=== PATIENT | female | born 1950 | race Hispanic/Latino ===

== ENCOUNTER 2018-04-13 08:43 | Day surgery (SDC) | payer MEDICARE ==
[~2018-04-13] VITALS: Ht 149.9 cm; Wt 61.1 kg
[~2018-04-13 08:43] MED LIST: ALLO100T PO; AMLO5TAB7 PO; CLOP75TA32 PO; LEVO75TA10 PO; SERT50TA12 PO; SODIUM CHLORIDE 0.9% 1000ML 1,000 ML IV ONE
[2018-04-13 09:57] VITALS: BP 98/48
[2018-04-13] MEDS ORDERED: ATOR40TA71 PO (10:22)
[2018-04-13] MEDS ORDERED: TRAM50TA4 PO (10:22)
[2018-04-13] MEDS ORDERED: MULT-1203 PO (10:23)
[2018-04-13 11:59] VITALS: BP 63/26
[2018-04-13 12:04] VITALS: BP 86/42
[2018-04-13 12:09] VITALS: BP 91/44
== END 2018-04-13 12:35 | disposition home or self-care (01) ==
LOC: DAH 08:43 → ENDO 08:43
PROVIDERS: ATTEND Internal Medicine Gastroenterology
DX: K63.5 Polyp of colon (principal); D63.1 Anemia in chronic kidney disease; K29.50 Unspecified chronic gastritis without bleeding; E78.2 Mixed hyperlipidemia; I12.0 Hypertensive chronic kidney disease with stage 5 chronic kidney disease or end stage renal disease; N18.6 End stage renal disease; F15.90 Other stimulant use, unspecified, uncomplicated; F32.9 Major depressive disorder, single episode, unspecified; Z90.49 Acquired absence of other specified parts of digestive tract; Z98.890 Other specified postprocedural states; Z79.899 Other long term (current) drug therapy; Z83.3 Family history of diabetes mellitus; Z82.49 Family history of ischemic heart disease and other diseases of the circulatory system
CPT/HCPCS: 36415; 43239; 45380; 45382; 84132; 88305; 93005; A4606; J7030; 45384

== ENCOUNTER 2019-05-19 08:02 | Day surgery (SDC) | payer MEDICARE ==
[~2019-05-19 08:02] MED LIST changes: -ALLO100T PO; -AMLO5TAB7 PO; +ATOR40TA71 PO; -CLOP75TA32 PO; +MULT-1203 PO; -SERT50TA12 PO; -SODIUM CHLORIDE 0.9% 1000ML 1,000 ML IV ONE; +TRAM50TA4 PO
[2019-05-19 09:01] VITALS: BP 117/45
[2019-05-19] MEDS ORDERED: LIDOCAINE HCL 1% MDV 50ML VIAL ONE (09:25)
[2019-05-19] MEDS ORDERED: MIDAZOLAM HCL 1 MG/ML 2ML VIAL ONE (11:05)
[2019-05-19] MEDS ORDERED: FENTANYL CITRATE PF 50 MCG/1 ML 2ML VIAL ONE (11:06)
[2019-05-19 11:50] VITALS: BP 105/42
--- NOTE | 2019-05-19 12:16 | NUR ---
PERMACATH IN PLACE RIJ TUNNELED, DRESSING CLEAN DRY AND INTACT. NO BLEEDING/HEMATOMA. REPORT TO NURSE MERRY. AT [facility] Addendum: 05/19/19 at 1218 by CLOVER CLAYTON RN RN Amended: Links added.
[2019-05-19 12:30] VITALS: BP 114/51
[2019-05-19 13:00] VITALS: BP 104/44
[2019-05-19 14:00] VITALS: BP 101/44
== END 2019-05-19 14:10 | disposition home or self-care (01) ==
LOC: CLH 08:02
PROVIDERS: ATTEND Internal Medicine
DX: N18.6 End stage renal disease (principal); F32.9 Major depressive disorder, single episode, unspecified; Z79.899 Other long term (current) drug therapy; Z82.49 Family history of ischemic heart disease and other diseases of the circulatory system; Z83.3 Family history of diabetes mellitus
CPT/HCPCS: 36558; 77001; 82948 ×2; A4215; A4221; A4222; A4223 ×3; A4606; A4649; A4663; C1750; C1894; J1644 ×2; J2250; J3010; J3490; 99156; 99157

== ENCOUNTER → 2019-11-24 | Outpatient (CLI) | payer MEDICARE | END | disposition home or self-care (01) | LOC: SHCH 11:42 | PROVIDERS: ATTEND Internal Medicine Cardiovascular Disease | DX: I08.3 Combined rheumatic disorders of mitral, aortic and tricuspid valves (principal); I48.0 Paroxysmal atrial fibrillation | CPT/HCPCS: 93306; 93356 ==

== ENCOUNTER → 2020-08-28 | Outpatient (CLI) | payer MEDICARE | END | disposition home or self-care (01) | LOC: RAH 08:10 | PROVIDERS: ATTEND Podiatrist | DX: E11.51 Type 2 diabetes mellitus with diabetic peripheral angiopathy without gangrene (principal) | CPT/HCPCS: 93922 ==